=== PATIENT | male | born 1965 | race American Indian/Alaskan Native ===

== ENCOUNTER 2017-02-12 09:16 | Outpatient (CLI) | payer BC ==
[2017-02-12 09:46] LABS: Basophils % (Auto) 0.6 % (0.0-1.8); Eosinophils % (Auto) 2.2 % (0.0-4.3); Hematocrit 40.3 % (35.5-45.6); Hemoglobin 13.5 gm/dl (11.8-15.2); Mean Corpuscular HGB Conc 34 % (32-34); Mean Corpuscular Hemoglobin 34 pg (28-32); Mean Corpuscular Volume 100 fl (84-94); Platelet Count 246 K/mm3 (140-440); Red Blood Count 4.04 M/mm3 (3.65-5.03); Red Cell Distribution Width 12.7 % (13.2-15.2); White Blood Count 5.8 K/mm3 (4.5-11.0)
[2017-02-12 09:48] LABS: Bilirubin,Urine NEG (Negative); Blood,Urine NEG (Negative); Ketones,Urine NEG (Negative); Leukocyte Esterase,Urine NEG (Negative); Mucus,Urine 1+ /HPF; Nitrite,Urine NEG (Negative); Protein,Urine <15 mg/dL mg/dL (Negative); Urobilinogen,Urine < 2.0 mg/dL (<2.0); WBC,Urine < 1.0 /HPF (0.0-6.0)
[2017-02-12 10:08] LABS: Alanine Aminotransferase 19 units/L (7-56); Albumin/Globulin Ratio 1.1 %; Alkaline Phosphatase 85 units/L (35-129); Anion Gap 15 mmol/L; Blood Urea Nitrogen 10 mg/dL (9-20); Calcium 8.8 mg/dL (8.4-10.2); Carbon Dioxide 25 mmol/L (22-30); Chloride 102.3 mmol/L (98-107); Cholesterol 165 mg/dL (50-199); Glucose 92 mg/dL (75-100); HDL Cholesterol 55 mg/dL (40-59); LDL Cholesterol,Direct 99 mg/dL (50-130); Potassium 3.7 mmol/L (3.6-5.0); Sodium 139 mmol/L (137-145); Total Protein 7.6 g/dL (6.3-8.2); Triglycerides 57 mg/dL (2-149)
== END 2017-02-12 09:17 | disposition home or self-care (01) ==
LOC: LAB 09:16
DX: Z12.5 Encounter for screening for malignant neoplasm of prostate (principal)
CPT/HCPCS: 36415; 80053; 80061; 81001; 84153; 84443; 85025

== ENCOUNTER 2017-10-09 10:41 | Day surgery (SDC) | payer BC ==
[2017-10-09] MEDS ORDERED: ANCEF/STERILE WATER 2 GM/20 ML 2 GM/20 ML SYRINGE IV NR (12:00)
[2017-10-09] MEDS ORDERED: DIPRIVAN 10 MG/ML IV ONE (12:13)
[2017-10-09] MEDS ORDERED: SUBLIMAZE ONE (12:13)
[2017-10-09] MEDS ORDERED: ZOFRAN ONE (12:14)
[2017-10-09] MEDS ORDERED: XYLOCAINE MPF 2% ONE (12:30)
[2017-10-09] MEDS ORDERED: NACL 0.9% 1000 ML 1,000 ML ONE (12:38)
--- NOTE | 2017-10-09 12:42 | Anesthesia Day of Surgery ---
Anesthesia Day of Surgery - Day of Surgery Patient Examined: Yes Patient H&P Reviewed: Yes Patient is NPO: Yes
--- NOTE | 2017-10-09 12:43 | Anesthesia Consultation ---
Anesthesia Consult and Med Hx Date of service: 10/09/17 - Airway Anesthetic Teeth Evaluation: Good ROM Head & Neck: Adequate Mental/Hyoid Distance: Adequate Mallampati Class: Class II Intubation Access Assessment: Probably Good - Pulmonary Exam CTA: Yes - Cardiac Exam Cardiac Exam: RRR - Pre-Operative Health Status ASA Pre-Surgery Classification: ASA2 Proposed Anesthetic Plan: General - Pulmonary Hx Smoking: No Hx Sleep Apnea: Yes (DX SLEEP APNEA , NO CPAP USE) - Cardiovascular System Hx Hypertension: Yes (X 5 YRS) - Central Nervous System Hx Psychiatric Problems: (PTSD) - Endocrine Hx Liver Disease: No - Other Systems Hx Cancer: No
[2017-10-09] MEDS ORDERED: NACL 0.9% 1000 ML 1,000 ML IV SCH (13:00)
--- NOTE | 2017-10-09 13:29 | Post Operative Note ---
Date of procedure: 10/09/17 Pre-op diagnosis: urethral stricture Post-op diagnosis: same Findings: 2-2.5 cm stricture Procedure: cysto rpg dviu Anesthesia: GETA Surgeon: JADE WALKER Estimated blood loss: none Pathology: none Condition: stable Disposition: PACU
--- NOTE | 2017-10-09 13:30 | Discharge Summary ---
Short Stay Discharge Plan Activity: other (no straining ) Weight Bearing Status: Full Weight Bearing Diet: low fat, low salt Special Instructions: other (teach catheter care ) Durable Medical Equipment Needed Upon Discharge: other (cai ) Follow up with: ARISTIDES MAGANA MD [Primary Care Provider] - 7 Days JADE WALKER MD [Staff Physician] - 7 Days
[2017-10-09] MEDS: DILAUDID IV PRN ×3 (13:35→13:55)
[2017-10-09] MEDS ORDERED: DILAUDID ONE (13:37)
--- NOTE | 2017-10-09 14:09 | Operative Report ---
PREOPERATIVE DIAGNOSIS: Urethral stricture. POSTOPERATIVE DIAGNOSES: Urethral stricture with mid penile urethral stricture approximately 2.5 cm, very thick and dense. PROCEDURE: Cystoscopy, direct vision internal urethrotomy, urethrogram, retrograde. SURGEON: Vinod Johnson M.D. ANESTHESIA: General. FINDINGS: This is a gentleman who presented with diminished flow with some voiding symptoms. We tried to scope him in the office. We saw a stricture right away, so we stopped. He now presents for cystoscopy under anesthesia. DESCRIPTION OF PROCEDURE: The patient brought to the operating room and placed on the operating table. Following induction of anesthesia, he was placed in lithotomy position and prepped and draped in usual sterile fashion. Cystourethroscopy showed a normal urethra up until mid penile urethra but was very tight. You could see a circumferential bullet-like hole with a very dense scar, especially dorsally. Urethrotomy was performed after we placed the Glidewire under fluoroscopic imaging. It should be noted urethrogram showed proximal dilatation and distal dilatation with approximately 1.5-2 cm stricture on urethrogram, but this measured about 2-2.5 cm on cystoscopic evaluation. Direct vision internal urethrotomy was carried out. There was absolutely no bleeding. It was opened wide. Proximal urethra was dilated. Bladder was a little thickened with no significant trabeculation. Retrograde showed good filling and good drainage. The patient tolerated the procedure well. The wire was replaced and a 22 [address]ill placed in the bladder without difficulty and brought to recovery room in stable condition. We looked for the family, they were not in the waiting area. JOB# [id number] ARIANNE/PEDRO
--- NOTE | 2017-10-09 14:56 | Post Anesthesia Evaluation ---
- Post Anesthesia Evaluation Patient Participated: Yes Airway Patent: Yes Stable Respiratory Function: Yes Nausea/Vomiting: No Temp > 96.8F: Yes Pain Manageable: Yes Adequeate Hydration: Yes Anesthesia Complications: No
[2017-10-09 17:11] VITALS: BP 131/75
--- NOTE | 2017-10-10 07:30 | Fluoroscopy Report ---
FLUOROSCOPY RETROGRADE UROGRAPHY: HISTORY: Urethral stricture. FINDINGS: Fluoroscopy was provided by radiology during retrograde urography by the urologist. 8 fluoroscopic images were captured. There is adequate filling of the ureters and intrarenal collecting systems with no filling defects or anatomic abnormalities identified. Please correlate with the procedural report if needed. IMPRESSION: Retrograde pyelograms within normal limits.
--- NOTE | 2017-10-10 07:32 | Fluoroscopy Report ---
FLUOROSCOPY RETROGRADE URETHROGRAM History: Urethral stricture. Findings: Fluoroscopy was provided by radiology during retrograde urethrogram by urology. One limited fluoroscopic image of the urethra was obtained while injecting contrast agent. There is suggestion of a midureteral stricture but there is poor opacification of the urethra. Please correlate with the procedural report as needed. Impression: Possible urethral stricture.
== END 2017-10-09 15:27 | disposition home or self-care (01) ==
LOC: OR 10:41
PROVIDERS: ATTEND Urology
DX: N35.9 Urethral stricture, unspecified (principal); G47.30 Sleep apnea, unspecified; I10 Essential (primary) hypertension; F43.10 Post-traumatic stress disorder, unspecified
CPT/HCPCS: 52276; 74420; 74450; C1769; J0690; J1170; J2405; J2704; J3010; J7030; Q9967

== ENCOUNTER 2018-01-28 08:14 | Outpatient (CLI) | payer BC ==
[2018-01-28 08:30] LABS: Basophils % (Auto) 0.7 % (0.0-1.8); Eosinophils # (Auto) 0.2 K/mm3 (0.0-0.4); Eosinophils % (Auto) 3.6 % (0.0-4.3); Hematocrit 42.7 % (35.5-45.6); Hemoglobin 14.4 gm/dl (11.8-15.2); Lymphocytes # (Auto) 1.9 K/mm3 (1.2-5.4); Lymphocytes % (Auto) 28.2 % (13.4-35.0); Mean Corpuscular HGB Conc 34 % (32-34); Mean Corpuscular Hemoglobin 33 pg (28-32); Mean Corpuscular Volume 99 fl (84-94); Monocytes # (Auto) 0.7 K/mm3 (0.0-0.8); Monocytes % (Auto) 9.9 % (0.0-7.3); Platelet Count 282 K/mm3 (140-440); Red Blood Count 4.32 M/mm3 (3.65-5.03); Red Cell Distribution Width 13.2 % (13.2-15.2)
[2018-01-28 08:42] LABS: Alanine Aminotransferase 20 units/L (7-56); BUN/Creatinine Ratio 11; Blood Urea Nitrogen 12 mg/dL (9-20); Calcium 9.6 mg/dL (8.4-10.2); Chol/HDL Ratio 4.02 %; HDL Cholesterol 47 mg/dL (40-59); Hemolysis Index 7; LDL Cholesterol,Direct 127 mg/dL (50-130)
== END 2018-01-28 08:15 | disposition home or self-care (01) ==
LOC: LAB 08:14
PROVIDERS: ATTEND Family Medicine
DX: Z12.5 Encounter for screening for malignant neoplasm of prostate (principal); I10 Essential (primary) hypertension; G47.30 Sleep apnea, unspecified; Z90.49 Acquired absence of other specified parts of digestive tract
CPT/HCPCS: 36415; 80053; 80061; 84153; 84443; 85025

== ENCOUNTER 2019-01-08 07:13 | Outpatient (CLI) | payer BC ==
[2019-01-08 07:35] LABS: Basophils # (Auto) 0.1 K/mm3 (0.0-0.1); Basophils % (Auto) 0.8 % (0.0-1.8); Eosinophils # (Auto) 0.2 K/mm3 (0.0-0.4); Eosinophils % (Auto) 2.3 % (0.0-4.3); Hematocrit 40.7 % (35.5-45.6); Hemoglobin 13.7 gm/dl (11.8-15.2); Lymphocytes # (Auto) 1.7 K/mm3 (1.2-5.4); Lymphocytes % (Auto) 24.1 % (13.4-35.0); Mean Corpuscular HGB Conc 34 % (32-34); Mean Corpuscular Volume 99 fl (84-94); Monocytes # (Auto) 0.7 K/mm3 (0.0-0.8); Monocytes % (Auto) 10.3 % (0.0-7.3); Platelet Count 288 K/mm3 (140-440); Red Blood Count 4.13 M/mm3 (3.65-5.03); Red Cell Distribution Width 12.8 % (13.2-15.2)
[2019-01-08 07:53] LABS: Alanine Aminotransferase 20 units/L (7-56); Albumin 4.2 g/dL (3.9-5); BUN/Creatinine Ratio 10; Blood Urea Nitrogen 13 mg/dL (9-20); Calcium 9.1 mg/dL (8.4-10.2); Chol/HDL Ratio 3.46 %; HDL Cholesterol 50 mg/dL (40-59); Hemolysis Index 3; LDL Cholesterol,Direct 119 mg/dL (50-130)
[2019-01-08 08:40] LABS: Bilirubin,Urine NEG (Negative); Blood,Urine NEG (Negative); Color,Urine Yellow (Yellow); Mucus,Urine FEW /HPF; Protein,Urine <15 mg/dL mg/dL (Negative); WBC,Urine < 1.0 /HPF (0.0-6.0)
== END 2019-01-08 07:14 | disposition home or self-care (01) ==
LOC: LAB 07:13
PROVIDERS: ATTEND Family Medicine
DX: Z00.00 Encounter for general adult medical examination without abnormal findings (principal); I10 Essential (primary) hypertension; Z90.49 Acquired absence of other specified parts of digestive tract
CPT/HCPCS: 36415; 80053; 80061; 81001; 84153; 84443; 85025